=== PATIENT | female | born 1975 | race Caucasian/White ===

== ENCOUNTER 2022-11-16 12:41 | Inpatient (IN) | payer BC ==
--- NOTE | 2022-11-16 13:32 | ED ---
General Adult HPI - General Chief complaint: Psychiatric Symptoms Stated complaint: EPS evarmida petition Time Seen by Provider: 11/16/22 13:22 Source: patient Mode of arrival: ambulatory Limitations: no limitations - History of Present Illness Initial comments: Dictation was produced using [employer]OCK[employer] dictation software. please excuse any grammatical, word or spelling errors. Chief Complaint: 47-year-old female petition by for anand History of Present Illness: 47-year-old female past medical history bipolar disease. She has been admitted to psychiatric inpatient multiple occasions. Over the last week or so she has been having increasing anand, insomnia. states that she's been showing signs of her psychosis. Patient has had extensive psychiatric treatment for the last several years. Denies any suicidal homicidal ideation. states that patient is having delusions also. The ROS documented in this emergency department record has been reviewed and confirmed by me. Those systems with pertinent positive or negative responses have been documented in the HPI. All other systems are other negative and/or noncontributory. PHYSICAL EXAM: General Impression: Alert and oriented x3, not in acute distress HEENT: Normocephalic atraumatic, extra-ocular movements intact, pupils equal and reactive to light bilaterally, mucous membranes moist. Cardiovascular: Heart regular rate and rhythm Chest: Able to complete full sentences, no retractions, no tachypnea Abdomen: abdomen soft, non-tender, non-distended, no organomegaly Musculoskeletal: Pulses present and equal in all extremities, no peripheral edema Motor: no focal deficits noted Neurological: CN II-XII grossly intact, no focal motor or sensory deficits noted Skin: Intact with no visualized rashes Psych: Psychotic ED course: 47-year-old female here for psychiatric evaluation. Patient is a extensive psychiatric history. Patient acutely psychotic. Vital signs upon arrival are within acceptable limits. Physical examination is benign. Patient medically cleared for EPS evaluation. Nursing notes and chart review was performed Patient was agitated given chemical sedation. Patient evaluated by EPS and will admit patient to psych unit. - Related Data Home Medications Medication Instructions Recorded Confirmed No Known Home Medications 11/16/22 11/16/22 Allergies Allergy/AdvReac Type Severity Reaction Status Date / Time No Known Allergies Allergy Verified 11/16/22 14:35 Review of Systems ROS Statement: Those systems with pertinent positive or pertinent negative responses have been documented in the HPI. ROS Other: All systems not noted in ROS Statement are negative. Past Medical History Additional Past Medical History / Comment(s): Vitamin D. History of Any Multi-Drug Resistant Organisms: None Reported Past Surgical History: No Surgical Hx Reported Past Psychological History: Anxiety, Bipolar, Depression Smoking Status: Never smoker Past Alcohol Use History: Rare Past Drug Use History: Marijuana General Exam Limitations: no limitations Course Vital Signs 11/16/22 12:47 Temperature 97.6 F Pulse Rate 103 H Respiratory 20 Rate Blood Pressure 145/92 O2 Sat by Pulse 96 Oximetry Medical Decision Making - Lab Data Lab Results 11/16/22 11/16/22 11/16/22 Range/Units 13:08 13:08 17:27 Urine Color Colorless Urine Appearance Clear (Clear) Urine pH 5.0 (5.0-8.0) Ur Specific [place] 1.003 (1.001-1.035) Urine Protein Negative (Negative) Urine Glucose (UA) Negative (Negative) Urine Ketones 2+ H (Negative) Urine Blood Negative (Negative) Urine Nitrite Negative (Negative) Urine Bilirubin Negative (Negative) Urine Urobilinogen <2.0 (<2.0) mg/dL Ur Leukocyte Esterase Negative (Negative) Urine Opiates Screen Not Detected (NotDetected) Ur Oxycodone Screen Not Detected (NotDetected) Urine Methadone Screen Not Detected (NotDetected) Ur Propoxyphene Screen Not Detected (NotDetected) Ur Barbiturates Screen Not Detected (NotDetected) U Tricyclic Antidepress Not Detected (NotDetected) Ur Phencyclidine Scrn Not Detected (NotDetected) Ur Amphetamines Screen Not Detected (NotDetected) U Methamphetamines Scrn Not Detected (NotDetected) U Benzodiazepines Scrn Not Detected (NotDetected) Urine Cocaine Screen Not Detected (NotDetected) U Marijuana (THC) Screen Detected H (NotDetected) Coronavirus (PCR) Not Detected (Not Detectd) Disposition Clinical Impression: Psychosis Disposition: ADMITTED IP TO THIS HOSP Condition: Fair Referrals: Rodger Saul MD [Primary Care Provider] - 1-2 days Decision Time: 18:54
[2022-11-16 13:41] LABS: Appearance,Urine Clear (Clear); Bilirubin,Urine Negative (Negative); Blood,Urine Negative (Negative); Color,Urine Colorless; Glucose,Urine (UA) Negative (Negative); Ketones,Urine 2+ (Negative); Leukocyte Esterase,Urine Negative (Negative); Nitrite,Urine Negative (Negative); Protein,Urine Negative (Negative); Specific Gravity,Urine 1.003 (1.001-1.035); Urobilinogen,Urine <2.0 mg/dL (<2.0)
[2022-11-16 13:58] LABS: Cocaine Screen,Urine Not Detected (NotDetected); Opiate Screen,Urine Not Detected (NotDetected); Phencyclidine Screen,Urine Not Detected (NotDetected); Urn Cannabinoid Scrn Detected (NotDetected)
[2022-11-16 13:59] LABS: Amphetamine Screen,Urine Not Detected (NotDetected); Barbiturate Screen,Urine Not Detected (NotDetected); Benzodiazepines Screen,Urine Not Detected (NotDetected); Methadone Screen, Urine Not Detected (NotDetected); Oxycodone Screen, Urine Not Detected (NotDetected); Tricyclic Antidepressant,Urine Not Detected (NotDetected)
[2022-11-16] MEDS ORDERED: HALOPERIDOL LACTATE 5 MG/ML 1 ML VIAL IM STA (14:21)
[2022-11-16] MEDS ORDERED: diphenhydrAMINE 50 MG/ML 1 ML VIAL IM STA (14:22)
[2022-11-16] MEDS ORDERED: LORazepam 2 MG/ML INJ IM STA (14:22)
[2022-11-16] MEDS ORDERED: ACETAMINOPHEN TAB 325 MG TAB PO PRN (19:29)
[2022-11-16] MEDS ORDERED: HALOPERIDOL LACTATE 5 MG/ML 1 ML VIAL IM PRN (19:29)
[2022-11-16] MEDS ORDERED: LORazepam 1 MG TAB PO PRN (19:29)
[2022-11-16] MEDS ORDERED: haloperidoL 5 MG TAB PO PRN (19:34)
[2022-11-16] MEDS ORDERED: LORazepam 2 MG/ML INJ IM PRN (19:35)
[2022-11-16] MEDS ORDERED: QUEtiapine 100 MG TAB PO SCH (21:00)
--- NOTE | 2022-11-17 02:36 | P.PN ---
Progress Note - Text Progress Note Date: 11/16/22 patient refused medical evaluation
[2022-11-17 08:12] LABS: Basophils % (A) 1 %; Eosinophils # (A) 0.3 k/uL (0-0.7); Eosinophils % (A) 6 %; HCT 42.1 % (34.0-46.0); HGB 14.1 gm/dL (11.4-16.0); Lymphocytes # (A) 1.2 k/uL (1.0-4.8); Lymphocytes % (A) 26 %; MCH 30.1 pg (25.0-35.0); MCHC 33.4 g/dL (31.0-37.0); Monocytes # (A) 0.2 k/uL (0-1.0); Monocytes % (A) 5 %; Neutrophils # (A) 2.7 k/uL (1.3-7.7); Neutrophils % (A) 60 %; Platelet Count 278 k/uL (150-450); RBC 4.68 m/uL (3.80-5.40); RDW 12.7 % (11.5-15.5); WBC 4.5 k/uL (3.8-10.6)
[2022-11-17 08:27] LABS: ALT 60 U/L (4-34); AST 56 U/L (14-36); African American GFR (CKD) >90 (>60 ml/min/1.73 sqM); Albumin 4.3 g/dL (3.5-5.0); Alkaline Phosphatase 72 U/L (38-126); Anion Gap 9 mmol/L; Blood Urea Nitrogen 11 mg/dL (7-17); Calcium 8.7 mg/dL (8.4-10.2); Carbon Dioxide 25 mmol/L (22-30); Chloride 100 mmol/L (98-107); Glucose 104 mg/dL (74-99); Non-African American GFR(CKD) 87 (>60 ml/min/1.73 sqM); Sodium 134 mmol/L (137-145); Total Bilirubin 0.8 mg/dL (0.2-1.3); Total Protein 7.2 g/dL (6.3-8.2)
[2022-11-17] MEDS ORDERED: NICOTINE 14MG/24HR PATCH TRANSDERM SCH (09:00)
--- NOTE | 2022-11-17 15:19 | P.MDCNMH ---
<Renato Painting - Last Filed: 11/17/22 14:58> History of Present Illness H&P Date: 11/17/22 History of Presenting Illness: Patient is a 47-year-old female with a past medical history of bipolar disorder and cannabinoid use disorder. She is currently admitted to inpatient mental health unit under psychiatric team. Patient under petition by her for a reported manic attack. Patient reports that she is and has 3 children at home. 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 Patient reports that she has been trying to deal with this at home but between dealing with everything at home and school and her bosses, she just broke and during a meeting at school she told her employers what she thought of them and what was frustrating her. She reports they are aware of her history of bipolar disorder and states that she was sent from her school to the hospital for evaluation. Patient currently calm and cooperative at this time. She denies having any suicidal or homicidal ideations and denies having any visual/auditory/tactile hallucinations. The patient states that she was hoping that she could just be sent home today. Patient reports that she is feeling better and just needs to be on some medicat ions. Patient reports cannabis use, denies nicotine use and denies any alcohol use. Patient denies any drug/substance use or abuse. She denies having any headaches, lightheadedness, dizziness, chest pain, palpitations, shortness of breath, or experiencing any numbness/tingling/weakness in her extremities. Laboratory results reviewed. CBC unremarkable. CMP revealing mild hyponatremia and slightly elevated liver function with AST of 56 and ALT of 60 (no previous labs available for comparison). Urinalysis negative for infection. Urine drug screen positive for marijuana. Covid PCR negative. Review of systems: Pertinent positives and negatives as discussed in HPI, a complete review of sy stems was performed and all other systems are negative. Physical exam: Vital signs reviewed and stable. General: Nontoxic, no distress and appears stated age. Derm: Skin warm and dry, normal coloration for ethnicity. Head: Atraumatic, normocephalic and symmetric. Eyes: EOMs intact, no lid lag, and anicteric sclera Mouth: no lip lesions, mucus membranes moist Cardiovascular: regular rate and rhythm with normal S1S2, no murmur Lungs: Respirations even, regular, and unlabored on room air. Lungs CTA bilaterally, no rhonchi, no rales, no wheezing, and no accessory muscle usage. Abdominal: soft, nontender to palpation, no guarding, no appreciable organomegaly Ext: ROM intact. No gross muscle atrophy, no edema, no contractures Neuro: Speech clear with normal tone and rate, face symmetrical and CN II-XII grossly intact with no noted focal neuro deficits. GCS 15. Psych: Alert and oriented to person, place, time, and situation. Appropriate and pleasant affect. Patient appears slightly anxious at times regarding wanting to go home but cooperative throughout assessment. Assessment and Plan of Care: Elevated liver enzymes -No previous labs available for comparison, liver enzymes only mildly elevated with AST of 56 and ALT of 60, no needs for further intervention at this time. -Possibly secondary to alcohol use however patient denies. Patient asymptomatic denying any abdominal complaints. -Recommend outpatient follow-up after discharge with PCP for repeat labs and continued long-term monitoring/management if needed. Cannabinoid use disorder -Recommend cessation of use. Bipolar disorder with reports of manic episode -Management per primary admitting psychiatric team. Thank you for allowing us to participate in the care of this pleasant patient. Do not hesitate to contact us with questions. Someone can be reached from the [facility] hospitalist group all hours of the day at [phone] or via [employer]. Past Medical History Additional Past Medical History / Comment(s): Vitamin D. History of Any Multi-Drug Resistant Organisms: None Reported Past Surgical History: No Surgical Hx Reported Past Psychological History: Anxiety, Bipolar, Depression Smoking Status: Never smoker Past Alcohol Use History: Rare Past Drug Use History: Marijuana Medications and Allergies Home Medications Medication Instructions Recorded Confirmed Type No Known Home Medications 11/16/22 11/16/22 History Allergies Allergy/AdvReac Type Severity Reaction Status Date / Time No Known Allergies Allergy Verified 11/16/22 22:09 Physical Exam Vitals: Vital Signs Temp Pulse Resp BP Pulse Ox 11/17/22 12:30 97 F L 94 16 107/69 98 11/16/22 19:59 97.5 F L 75 18 115/78 100 Intake and Output 11/16/22 11/17/22 11/17/22 22:59 06:59 14:59 Other: Weight 82.3 kg Cranial Nerve Examination - Cranial Nerves Cranial Nerve II- Optic: Intact Cranial Nerve III- Oculomotor: Intact Cranial Nerve IV- Trochlear: Intact Cranial Nerve V- Trigeminal: Intact Cranial Nerve - Abducens: Intact Cranial Nerve VII- Facial: Intact Cranial Nerve VIII- Auditory: Intact Cranial Nerve IX- Glossopharyngeal: Intact Cranial Nerve X- Vagus: Intact Cranial Nerve XI- Accessory: Intact Cranial Nerve XII- Hypoglossal: Intact Results CBC & Chem 7: 11/17/22 07:49 11/17/22 07:52 Labs: Abnormal Lab Results - Last 24 Hours (Table) 11/17/22 Range/Units 07:52 Sodium 134 L (137-145) mmol/L Glucose 104 H (74-99) mg/dL AST 56 H (14-36) U/L ALT 60 H (4-34) U/L <Heaven Patel - Last Filed: 11/17/22 19:18> History of Present Illness Renato Painting NP rendered care for this patient independently, reviewed the findings and plan as documented in the note above. I did not physically speak with or examine the patient on this date. Physical Exam Osteopathic Statement: *. No significant issues noted on an osteopathic structural exam other than those noted in the History and Physical/Consult. Vitals: Vital Signs Temp Pulse Resp BP Pulse Ox 11/17/22 12:30 97 F L 94 16 107/69 98 11/16/22 19:59 97.5 F L 75 18 115/78 100 Results CBC & Chem 7: 11/17/22 07:49 11/17/22 07:52 Labs: Abnormal Lab Results - Last 24 Hours (Table) 11/17/22 Range/Units 07:52 Sodium 134 L (137-145) mmol/L Glucose 104 H (74-99) mg/dL AST 56 H (14-36) U/L ALT 60 H (4-34) U/L
[2022-11-17] MEDS: ARIPiprazole 5 MG TAB PO SCH (15:35)
--- NOTE | 2022-11-17 15:42 | P.HP ---
Psychiatric H&P - . H&P Date: 11/17/22 History & Physical: Allergies Allergy/AdvReac Type Severity Reaction Status Date / Time No Known Allergies Allergy Verified 11/16/22 22:09 Vital Signs Temp 97.5 F L 11/16/22 19:59 Pulse 75 11/16/22 19:59 Resp 18 11/16/22 19:59 BP 115/78 11/16/22 19:59 Pulse Ox 100 11/16/22 19:59 FiO2 Intake & Output 11/16/22 11/17/22 11/17/22 18:59 06:59 18:59 Weight 84.867 kg 82.3 kg Laboratory Last Values WBC 4.5 k/uL (3.8-10.6) 11/17/22 07:49 RBC 4.68 m/uL (3.80-5.40) 11/17/22 07:49 Hgb 14.1 gm/dL (11.4-16.0) 11/17/22 07:49 Hct 42.1 % (34.0-46.0) 11/17/22 07:49 MCV 90.0 fL (80.0-100.0) 11/17/22 07:49 MCH 30.1 pg (25.0-35.0) 11/17/22 07:49 MCHC 33.4 g/dL (31.0-37.0) 11/17/22 07:49 RDW 12.7 % (11.5-15.5) 11/17/22 07:49 Plt Count 278 k/uL (150-450) 11/17/22 07:49 MPV 7.0 11/17/22 07:49 Neutrophils % 60 % 11/17/22 07:49 Lymphocytes % 26 % 11/17/22 07:49 Monocytes % 5 % 11/17/22 07:49 Eosinophils % 6 % 11/17/22 07:49 Basophils % 1 % 11/17/22 07:49 Neutrophils # 2.7 k/uL (1.3-7.7) 11/17/22 07:49 Lymphocytes # 1.2 k/uL (1.0-4.8) 11/17/22 07:49 Monocytes # 0.2 k/uL (0-1.0) 11/17/22 07:49 Eosinophils # 0.3 k/uL (0-0.7) 11/17/22 07:49 Basophils # 0.0 k/uL (0-0.2) 11/17/22 07:49 Sodium 134 mmol/L (137-145) L 11/17/22 07:52 Potassium 4.0 mmol/L (3.5-5.1) 11/17/22 07:52 Chloride 100 mmol/L (98-107) 11/17/22 07:52 Carbon Dioxide 25 mmol/L (22-30) 11/17/22 07:52 Anion Gap 9 mmol/L 11/17/22 07:52 BUN 11 mg/dL (7-17) 11/17/22 07:52 Creatinine 0.81 mg/dL (0.52-1.04) 11/17/22 07:52 Est GFR (CKD-EPI)AfAm >90 (>60 ml/min/1.73 sqM) 11/17/22 07:52 Est GFR (CKD-EPI)NonAf 87 (>60 ml/min/1.73 sqM) 11/17/22 07:52 Glucose 104 mg/dL (74-99) H 11/17/22 07:52 Calcium 8.7 mg/dL (8.4-10.2) 11/17/22 07:52 Total Bilirubin 0.8 mg/dL (0.2-1.3) 11/17/22 07:52 AST 56 U/L (14-36) H 11/17/22 07:52 ALT 60 U/L (4-34) H 11/17/22 07:52 Alkaline Phosphatase 72 U/L (38-126) 11/17/22 07:52 Total Protein 7.2 g/dL (6.3-8.2) 11/17/22 07:52 Albumin 4.3 g/dL (3.5-5.0) 11/17/22 07:52 TSH 1.600 mIU/L (0.465-4.680) 11/17/22 07:52 Urine Color Colorless 11/16/22 13:08 Urine Appearance Clear (Clear) 11/16/22 13:08 Urine pH 5.0 (5.0-8.0) 11/16/22 13:08 Ur Specific [place] 1.003 (1.001-1.035) 11/16/22 13:08 Urine Protein Negative (Negative) 11/16/22 13:08 Urine Glucose (UA) Negative (Negative) 11/16/22 13:08 Urine Ketones 2+ (Negative) H 11/16/22 13:08 Urine Blood Negative (Negative) 11/16/22 13:08 Urine Nitrite Negative (Negative) 11/16/22 13:08 Urine Bilirubin Negative (Negative) 11/16/22 13:08 Urine Urobilinogen <2.0 mg/dL (<2.0) 11/16/22 13:08 Ur Leukocyte Esterase Negative (Negative) 11/16/22 13:08 Urine Opiates Screen Not Detected (NotDetected) 11/16/22 13:08 Ur Oxycodone Screen Not Detected (NotDetected) 11/16/22 13:08 Urine Methadone Screen Not Detected (NotDetected) 11/16/22 13:08 Ur Propoxyphene Screen Not Detected (NotDetected) 11/16/22 13:08 Ur Barbiturates Screen Not Detected (NotDetected) 11/16/22 13:08 U Tricyclic Antidepress Not Detected (NotDetected) 11/16/22 13:08 Ur Phencyclidine Scrn Not Detected (NotDetected) 11/16/22 13:08 Ur Amphetamines Screen Not Detected (NotDetected) 11/16/22 13:08 U Methamphetamines Scrn Not Detected (NotDetected) 11/16/22 13:08 U Benzodiazepines Scrn Not Detected (NotDetected) 11/16/22 13:08 Urine Cocaine Screen Not Detected (NotDetected) 11/16/22 13:08 U Marijuana (THC) Screen Detected (NotDetected) H 11/16/22 13:08 Coronavirus (PCR) Not Detected (Not Detectd) 11/16/22 17:27 11/17/22 14:49 IDENTIFYING DATA: Patient is a 47-year-old female, currently lives with her and 3 kids, they live in a house, she works as a teacher. HPI: Patient presented to the hospital yesterday and evaluated in the ER for an increase in her manic symptoms and insomnia. According to ER report there was "signs of psychosis" according to and also patient was delusional. Patient's UDS positive for marijuana. Patient was admitted involuntarily to the mental health unit. Patient was seen wandering the hallways and agreeable educational speech language clinician today. Patient was rambling at times during the interview, illogical as well. She was fairly argumentative about medications and states that she stopped taking her medications about 1-1/2 years ago. She claims that she gets manic episodes about once a year. She claims that "I just came off a manic episode". She started speaking about being "clairvoyant" and that she has special palm and can manipulate objects. She claims that she also gets "signs from God" and also people. She claims that she wants to go to [facility] to talk with a doctor that treats bipolar disorder without any medications. She claims that the main reason why she came in the hospital was for "poor sleep" for the past for 5 days. She claims that work has been a big trigger for her. She also claims that she took a edible gummy bear however did not know it has TCH in it. She states that her mood is "a bit better now" denying any paranoia at this time. States that her sleep is poor, appetite as been fair. She was endorsing fairly poor insight and judgment and was not interested in taking medications initially. Patient denies any suicidal or homicidal ideations intent or plan. At this time patient denies any auditory or visual hallucinations. Patient admits to using edible gummy bear of thc as noted above and denies any other rec drug use. PAST PSYCHIATRIC HISTORY: Patient states that she has a history of bipolar disorder for several years. She claims that she has been on several different medications in the past and states that she had a bad reaction to lithium, and has been off of bipolar medications for about a year and a half now. He claims that she has had 4 psychiatric admissions in the past and last admission was at [facility]. Patient denies any psychiatric outpatient follow-up. Patient denies any history of suicide attempts in the past. Additional Past Medical History / Comment(s): Vitamin D. History of Any Multi-Drug Resistant Organisms: None Reported Past Surgical History: No Surgical Hx Reported Past Psychological History: Anxiety, Bipolar, Depression Smoking Status: Never smoker Past Alcohol Use History: Rare Past Drug Use History: Marijuana ALLERGIES: as per EMR CHEMICAL DEPENDENCY HISTORY: as per HPI FAMILY PSYCHIATRIC/SUBSTANCE USE HISTORY: Bipolar disorder in her brother. SOCIAL HISTORY: Patient was born and raised in [facility]. She states that she completed high school undergraduate studies and also her masters. She works as a teacher currently. She claims that she lives with her and 3 kids in a house. She denies any legal history. MENTAL STATUS EXAM: General Appearance: Patient appears to be wearing glasses, hospital gown, stated age is alert, rambling at times, argumentative. Patient appears to have poor hygiene and grooming. Behavior: Patient is seated without any agitated behavior. argumentative. Speech: Patient's speech is fluent and nonpressured. rapid. Mood/Affect: Patient reports their mood is "better now", affect is congruent Suicidality/Homicidality: Patient denies having any homicidal ideation intent or plan. Denies any suicidal ideations intent or plan Perceptions: Patient denies any visual hallucinations and denies any auditory hallucinations Though content/process: Patient is rambling, illogical at times. Religiously preoccupied. Minimizing her need for treatment. Memory and concentration: AOX3, grossly intact for the purposes of this session. Can spell "WORLD" backwards Judgment and insight: poor STRENGTHS/WEAKNESSES: strength is that patient is resilient. Weakness is that patient has poor judgment and is impulsive INTELLECT: average IMPRESSIONS: Bipolar disorder, current episode anand Cannabis use disorder mild PLAN: -Patient is admitted under involuntary status to MHU for stabilization of psychiatric symptoms and safety. Patient has not signed adult voluntary form and medication consent and is placed in patient's chart. A second certification was completed and along with petition will be filed for court. -Medications : Will start patient on Abilify by mouth 5 mg daily for mood stabilization/psychosis, trazodone 50 mg daily at bedtime for mood/insomnia. -Ativan and Haldol PRN for agitation/aggression -Patient was counselled on substance abuse and desired to cut back on use -Patient was informed of the risks, benefits and side effects of the medication and patient verbally consented to taking the medications. Patient signed med consent form and was placed in chart. -Internal Medicine consult to perform medical evaluation and physical. -NRT - not needed as patient does not smoke -SW on board for discharge planning. Encourage patient to participate in groups to work on coping skills. Will await deferral and court date. 11/17/22 14:51 11/17/22 15:35
[2022-11-17] MEDS ORDERED: traZODone HCL 50 MG TAB PO SCH (21:00)
[2022-11-17] MEDS ORDERED: QUEtiapine 50 MG TAB PO SCH (21:00)
[2022-11-17] MEDS: MAG HYDROX/AL HYDROX/SIMETH 30 ML CUP PO PRN (23:52)
[2022-11-18] MEDS: ARIPiprazole 5 MG TAB PO SCH (09:14)
[2022-11-18] MEDS: MAG HYDROX/AL HYDROX/SIMETH 30 ML CUP PO PRN (11:34)
[2022-11-18] MEDS ORDERED: traZODone HCL 50 MG TAB PO SCH (14:53)
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
[2022-11-18] MEDS: MAGNESIUM HYDROXIDE 2,400 MG/10 ML CUP PO PRN (16:55)
[2022-11-18] MEDS: MIRTAZAPINE 15 MG TAB PO SCH (21:43)
[2022-11-19] MEDS: ARIPiprazole 5 MG TAB PO SCH (08:51)
[2022-11-19] MEDS: MAG HYDROX/AL HYDROX/SIMETH 30 ML CUP PO PRN (10:11)
[2022-11-19] MEDS: MIRTAZAPINE 15 MG TAB PO SCH (20:55)
--- NOTE | 2022-11-19 21:16 | P.PN ---
Subjective Progress Note Date: 11/19/22 Principal diagnosis: Progress note She was seen in person to review her progress. She was contented with Abilify alone and would not agree with TraZodone nor GABApentin. She compla ined of transient GI upset no flu syndorme. She was less litigious towards the petition and was explained her rigghts her move of approaching the patient rigths and advocate adviser. She most likely would be ready to be discharged. as she has outlieved the inpatient admission critera by Sunday-Sunday. Diag; Bipolar disorde x 10yrss stability limited by her senstiivity towards Rx and her unwillingness to collaborate with different tx teams. Plan; discuss discharge plan tomororow . Follow up at her own discretion at her Psychiatrist of choice eg referral to and for clarifying her eccentric palm marc to magical palm not marc to delusion of control She was highly critical of the legal framework of peition section and would not agree to go through flexible pt oriented recovery route. Objective - Vital Signs Vital signs: Vital Signs Temp 97.7 F 11/19/22 06:40 Pulse 75 11/19/22 06:40 Resp 16 11/19/22 06:40 BP 117/75 11/19/22 06:40 Pulse Ox 95 11/19/22 06:40 FiO2 - Labs CBC & Chem 7: 11/17/22 07:49 11/17/22 07:52
[2022-11-19] MEDS: MAGNESIUM HYDROXIDE 2,400 MG/10 ML CUP PO PRN (23:51)
[2022-11-20] MEDS: ARIPiprazole 5 MG TAB PO SCH (09:47)
[2022-11-20] MEDS ORDERED: LORazepam 1 MG TAB PO PRN (10:38)
--- NOTE | 2022-11-20 12:06 | P.PN ---
Progress Note - Text Progress Note Date: 11/20/22 Interval History: Patient was seen wandering the hallways and was directable and agreeable to sp yusefk with health underwriter in the office. Patient appears to be more cooperative today with health underwriter. She continues to ramble at times during conversation however is more goal oriented and logical. She claims that she has been taking the medications. She asked several times about the treatment plan and also discharge. She claims that the trazodone caused her to have several different issues and felt "groggy" the next day he claims that she does not want to take that any longer. We spoke about the other option Remeron which she is agreeable to. She claims that she has been going to groups and speaking with her . She claims that her sleep is still been on and off and the racing thoughts have have improved. At this time patient denies any suicidal or homical ideations, intent or plan. Patient denies any auditory, visual hallucinations and denies any paranoia or delusions. Patient denies any side effects from the medications and has been compliant with meds. Mental Status Exam: General Appearance: Patient appears to be wearing glasses, hospital gown, stated age is alert, rambling at times, improving, less argumentative. Patient appears to have improving hygiene and grooming. Behavior: Patient is seated without any agitated behavior. less argumentative. Speech: Patient's speech is fluent and nonpressured. Mood/Affect: Patient reports their mood is "a bit better", affect is congruent Suicidality/Homicidality: Patient denies having any homicidal ideation intent or plan. Denies any suicidal ideations intent or plan Perceptions: Patient denies any visual hallucinations and denies any auditory hallucinations Though content/process: Patient is logical. Not Religiously preoccupied. Memory and concentration: AOX3, grossly intact for the purposes of this session Judgment and insight: poor IMPRESSIONS: Bipolar disorder, current episode anand Cannabis use disorder mild Plan: -Patient continues to meet criteria for inpatient psychiatric admission for symptom stabilization and safety. Patient has not signed adult voluntary form and was placed in patient's chart. -Medications: Abilify by mouth 5 mg daily for mood stabilization/psychosis, trazodone 50 mg daily at bedtime for mood/insomnia. -When necessary Ativan and Haldol for agitation/aggression. -NRT -not needed as patient does not smoke -SW on board for discharge planning. Encouraged the patient to participate in milieu. Currently awaiting deferral with corporate attorney and court date.
[2022-11-20] MEDS: MIRTAZAPINE 15 MG TAB PO SCH (20:36)
[2022-11-21] MEDS: ARIPiprazole 15 MG TAB PO SCH (09:15)
[2022-11-21] MEDS: MAG HYDROX/AL HYDROX/SIMETH 30 ML CUP PO PRN (09:17)
--- NOTE | 2022-11-21 11:41 | P.PN ---
Progress Note - Text Progress Note Date: 11/21/22 Interval History: Patient was seen wandering the hallways and was directable and agreeable to sp eak with promotion writer in the office. Patient appears to be more cooperative today and directable during conversation with promotion writer. She claims that she feels medications have been helping her. She claims that she is not sure if the Abilify is making her feel tired or she was just tired from the previous night and not sleeping well. She claims her sleep was a bit better with the Remeron however wants to give it another night at this dose. We spoke about other alternatives to sleeping medication which wants to remain on Remeron. She denies having had any other side effects from the medications. She claims that she is going to groups. She was fairly focused on discharge. She claims that she has not spoken with her mobile security architect and further deferral. Things have a fair appetite at this time. At this time patient denies any suicidal or homical ideations, intent or plan. Patient denies any auditory, visual hallucinations and denies any paranoia or delusions. Patient denies any side effects from the medications and has been compliant with meds. Mental Status Exam: General Appearance: Patient appears to be wearing glasses, hospital gown, stated age is alert, more directable. Patient appears to have improving hygiene and grooming. Behavior: Patient is seated without any agitated behavior. Speech: Patient's speech is fluent and nonpressured. Mood/Affect: Patient reports their mood is "a bit better", affect is congruent and brighter Suicidality/Homicidality: Patient denies having any homicidal ideation intent or plan. Denies any suicidal ideations intent or plan Perceptions: Patient denies any visual hallucinations and denies any auditory hallucinations Though content/process: Patient is logical. Not Religiously preoccupied. Memory and concentration: AOX3, grossly intact for the purposes of this session Judgment and insight: Improving mildly IMPRESSIONS: Bipolar disorder, current episode anand Cannabis use disorder mild Plan: -Patient continues to meet criteria for inpatient psychiatric admission for symptom stabilization and safety. Patient has not signed adult voluntary form and was placed in patient's chart. -Medications: continue Abilify by mouth 7.5 mg daily for mood stabilization/psychosis, continue remeron 15 mg daily at bedtime for mood/insomnia -When necessary Ativan and Haldol for agitation/aggression. -NRT -not needed as patient does not smoke -SW on board for discharge planning. Encouraged the patient to participate in milieu. Currently awaiting deferral with mobile security architect and court date. likely discharge tomorrow if patient is doing well.
[2022-11-21] MEDS: MIRTAZAPINE 15 MG TAB PO SCH (20:36)
[2022-11-22 07:07] VITALS: BP 117/57; PULSE 92; RESP 16; TEMP 97.3
[2022-11-22] MEDS: ARIPiprazole 15 MG TAB PO SCH (08:46)
--- NOTE | 2022-11-22 09:58 | P.DS ---
Providers Date of admission: 11/16/22 19:23 Expected date of discharge: 11/22/22 Attending physician: Fredy Ochoa MD Consults: 11/16/22 19:29 Consult Physician Routine Consulting Provider: Sandip Physician Consult Reason/Comments: H&P Do you want consulting provider notified?: Yes Primary care physician: Rodger Graves - Discharge Diagnosis(es) (1) Bipolar disorder, manic Current Visit: Yes Status: Acute Priority: High (2) Cannabis use disorder, mild, abuse Current Visit: Yes Status: Acute Priority: Medium Hospital Course: Admission HPI: Admission note was completed by play writer "Patient is a 47-year-old female, currently lives with her and 3 kids, they live in a house, she works as a teacher. Patient presented to the hospital yesterday and evaluated in the ER for an increase in her manic symptoms and insomnia. According to ER report there was "signs of psychosis" according to and also patient was delusional. Patient's UDS positive for marijuana. Patient was admitted involuntarily to the mental health unit. Patient was seen wandering the hallways and agreeable speech language pathologist assistant today. Patient was rambling at times during the interview, illogical as well. She was fairly argumentative about medications and states that she stopped taking her medications about 1-1/2 years ago. She claims that she gets manic episodes about once a year. She claims that "I just came off a manic episode". She started speaking about being "clairvoyant" and that she has special palm and can manipulate objects. She claims that she also gets "signs from God" and also people. She claims that she wants to go to [facility] to talk with a doctor that treats bipolar disorder without any medications. She claims that the main reason why she came in the hospital was for "poor sleep" for the past for 5 days. She claims that work has been a big trigger for her. She also claims that she took a edible gummy bear however did not know it has TCH in it. She states that her mood is "a bit better now" denying any paranoia at this time. States that her sleep is poor, appetite as been fair. She was endorsing fairly poor insight and judgment and was not interested in taking medications initially. Patient denies any suicidal or homicidal ideations intent or plan. At this time patient denies any auditory or visual hallucinations. Patient admits to using edible gummy bear of thc as noted above and denies any other rec drug use." Hospital course: Upon admission to the unit patient was admitted involuntarily on a petition and certificate and a second certificate was completed and faxed with the courts. Patient ended up signing a deferral with the state's attorney and agreeing to treatment. Patient got along well with other patients on the unit and followed unit protocol. Patient was compliant with the medications and denied any side effects throughout hospital course. Patient was started on Abilify and increased to a dose of 7.5 mg daily for mood stabilization/psychosis, Remeron 15 mg daily at bedtime for mood/insomnia. Patient spoke of her stressors and engaged in therapy both group and individual. Patient was also seen by medical team for history and physical exam. Throughout the course of the hospitalization patient gradually improved with regards to mood, anxiety, bizarre thoughts, sleep and returned back to their baseline level of functioning. On the day of discharge patient denied any suicidal or homicidal ideations intent or plan denied any auditory or visual hallucinations. Patient endorsed wanting to live for her kids and her future. The patient denied any access to guns or weapons. Patient denied any paranoia and did not endorse any delusions. Patient does have a significant history of substance abuse and was counseled on abstaining from all substances including alcohol and marijuana. Patient elected to do outpatient substance use treatment program through her outpatient provider. Patient was also counseled on the medications and need for regular compliance and was encouraged to follow-up with their outpatient appointment for mental health and also for primary care. Prior to discharge a family meeting will be arranged by perinatal social worker to answer any questions and ensure safety upon discharge. Mental status exam: General Appearance: Patient appears to be wearing glasses,stated age is alert, pleasant, and cooperative. Patient is in no acute distress and has improved hygiene and grooming Behavior: Patient is calmly seated without any agitated behavior. directable Speech: Patient's speech is fluent and nonpressured. Mood/Affect: Patient reports their mood is "much better", affect is congruent Suicidality/Homicidality: Patient denies having any suicidal or homicidal ideation intent or plan. Perceptions: Patient denies any auditory or visual hallucinations. Though content/process: There is no evidence of any delusional thought content and thought process is linear and goal-directed. more future oriented Memory and concentration: AOX3, grossly intact for the purposes of this session. Can spell "WORLD" backwards correctly. Judgment and insight: improved with guarded prognosis Impression: Bipolar disorder, manic Cannabis use disorder mild Plan: -Continue with discharge today as patient has improved and stabilized psychiatrically and is not currently an imminent threat to herself and/or others. -Continue medications: Abilify by mouth 7.5 mg daily for mood stabilization/psychosis, Remeron 15 mg daily at bedtime for mood/insomnia. -Patient was counseled on the need for medication compliance and appropriate follow-up at mental health and also primary care for medical issues. Patient verbalized understanding and agreed. -Social work to arrange for and conduct family meeting to ensure safety upon discharge and answer any questions/concerns. Social work also to arrange for patients follow up appointments for psychiatric care along with follow up with primary care provider. -Patient counseled on abstaining from recreational drugs and marijuana and alcohol. Was informed/educated on the adverse effects on their physical and mental health. Patient verbally agreed and understood. Patient was offered substance abuse treatment however declined at this time. -Patient was instructed to return to the hospital or seek immediate medical care if their psychiatric or medical symptoms do worsen or reoccur. Allergies Allergy/AdvReac Type Severity Reaction Status Date / Time No Known Allergies Allergy Verified 11/16/22 22:09 Laboratory Results WBC 4.5 k/uL (3.8-10.6) 11/17/22 07:49 RBC 4.68 m/uL (3.80-5.40) 11/17/22 07:49 Hgb 14.1 gm/dL (11.4-16.0) 11/17/22 07:49 Hct 42.1 % (34.0-46.0) 11/17/22 07:49 MCV 90.0 fL (80.0-100.0) 11/17/22 07:49 MCH 30.1 pg (25.0-35.0) 11/17/22 07:49 MCHC 33.4 g/dL (31.0-37.0) 11/17/22 07:49 RDW 12.7 % (11.5-15.5) 11/17/22 07:49 Plt Count 278 k/uL (150-450) 11/17/22 07:49 MPV 7.0 11/17/22 07:49 Neutrophils % 60 % 11/17/22 07:49 Lymphocytes % 26 % 11/17/22 07:49 Monocytes % 5 % 11/17/22 07:49 Eosinophils % 6 % 11/17/22 07:49 Basophils % 1 % 11/17/22 07:49 Neutrophils # 2.7 k/uL (1.3-7.7) 11/17/22 07:49 Lymphocytes # 1.2 k/uL (1.0-4.8) 11/17/22 07:49 Monocytes # 0.2 k/uL (0-1.0) 11/17/22 07:49 Eosinophils # 0.3 k/uL (0-0.7) 11/17/22 07:49 Basophils # 0.0 k/uL (0-0.2) 11/17/22 07:49 Sodium 134 mmol/L (137-145) L 11/17/22 07:52 Potassium 4.0 mmol/L (3.5-5.1) 11/17/22 07:52 Chloride 100 mmol/L (98-107) 11/17/22 07:52 Carbon Dioxide 25 mmol/L (22-30) 11/17/22 07:52 Anion Gap 9 mmol/L 11/17/22 07:52 BUN 11 mg/dL (7-17) 11/17/22 07:52 Creatinine 0.81 mg/dL (0.52-1.04) 11/17/22 07:52 Est GFR (CKD-EPI)AfAm >90 (>60 ml/min/1.73 sqM) 11/17/22 07:52 Est GFR (CKD-EPI)NonAf 87 (>60 ml/min/1.73 sqM) 11/17/22 07:52 Glucose 104 mg/dL (74-99) H 11/17/22 07:52 Calcium 8.7 mg/dL (8.4-10.2) 11/17/22 07:52 Total Bilirubin 0.8 mg/dL (0.2-1.3) 11/17/22 07:52 AST 56 U/L (14-36) H 11/17/22 07:52 ALT 60 U/L (4-34) H 11/17/22 07:52 Alkaline Phosphatase 72 U/L (38-126) 11/17/22 07:52 Total Protein 7.2 g/dL (6.3-8.2) 11/17/22 07:52 Albumin 4.3 g/dL (3.5-5.0) 11/17/22 07:52 TSH 1.600 mIU/L (0.465-4.680) 11/17/22 07:52 Urine Color Colorless 11/16/22 13:08 Urine Appearance Clear (Clear) 11/16/22 13:08 Urine pH 5.0 (5.0-8.0) 11/16/22 13:08 Ur Specific [place] 1.003 (1.001-1.035) 11/16/22 13:08 Urine Protein Negative (Negative) 11/16/22 13:08 Urine Glucose (UA) Negative (Negative) 11/16/22 13:08 Urine Ketones 2+ (Negative) H 11/16/22 13:08 Urine Blood Negative (Negative) 11/16/22 13:08 Urine Nitrite Negative (Negative) 11/16/22 13:08 Urine Bilirubin Negative (Negative) 11/16/22 13:08 Urine Urobilinogen <2.0 mg/dL (<2.0) 11/16/22 13:08 Ur Leukocyte Esterase Negative (Negative) 11/16/22 13:08 Urine Opiates Screen Not Detected (NotDetected) 11/16/22 13:08 Ur Oxycodone Screen Not Detected (NotDetected) 11/16/22 13:08 Urine Methadone Screen Not Detected (NotDetected) 11/16/22 13:08 Ur Propoxyphene Screen Not Detected (NotDetected) 11/16/22 13:08 Ur Barbiturates Screen Not Detected (NotDetected) 11/16/22 13:08 U Tricyclic Antidepress Not Detected (NotDetected) 11/16/22 13:08 Ur Phencyclidine Scrn Not Detected (NotDetected) 11/16/22 13:08 Ur Amphetamines Screen Not Detected (NotDetected) 11/16/22 13:08 U Methamphetamines Scrn Not Detected (NotDetected) 11/16/22 13:08 U Benzodiazepines Scrn Not Detected (NotDetected) 11/16/22 13:08 Urine Cocaine Screen Not Detected (NotDetected) 11/16/22 13:08 U Marijuana (THC) Screen Detected (NotDetected) H 11/16/22 13:08 Coronavirus (PCR) Not Detected (Not Detectd) 11/16/22 17:27 Vital Signs Temp 97.3 F L 11/22/22 06:45 Pulse 92 11/22/22 06:45 Resp 16 11/22/22 06:45 BP 117/57 11/22/22 06:45 Pulse Ox 96 11/22/22 06:45 FiO2 Patient Condition at Discharge: Stable Plan - Discharge Summary Discharge Rx Participant: Yes New Discharge Prescriptions: New ARIPiprazole [Abilify] 7.5 mg PO DAILY 30 Days #15 tab Mirtazapine [Remeron] 15 mg PO HS 30 Days #30 tab Discharge Medication List ARIPiprazole [Abilify] 7.5 mg PO DAILY 30 Days #15 tab 11/22/22 [Rx] Mirtazapine [Remeron] 15 mg PO HS 30 Days #30 tab 11/22/22 [Rx] Follow up Appointment(s)/Referral(s): [facility] [Other] - 12/07/22 11:00 am (telehealth appointment with Consuelo ) Rodger Saul MD [Primary Care Provider] - 1-2 days Patient Instructions/Handouts: Bipolar Disorder (DC) Activity/Diet/Wound Care/Special Instructions: Avoid the use of street drugs and alcohol. Take all prescriptions as prescribed. When you are in need of refills on your medications, please contact your medical provider and/or outpatient psychiatrist to have this done. Please go to scheduled outpatient appointment for aftercare treatment. If symptoms return or become worse, call the crisis line at and/or go to the nearest emergency room for evaluation Discharge Disposition: HOME SELF-CARE
== END 2022-11-22 12:02 | disposition home or self-care (01) | DRG 885 ==
LOC: EC 12:41 → 3MHU 19:23
PROVIDERS: ADMIT Psychiatry & Neurology Psychiatry; ATTEND Psychiatry & Neurology Psychiatry
DX: F31.2 Bipolar disorder, current episode manic severe with psychotic features (principal); F12.10 Cannabis abuse, uncomplicated; Z20.822 Contact with and (suspected) exposure to COVID-19; Z28.310 Unvaccinated for COVID-19; F41.9 Anxiety disorder, unspecified; G47.00 Insomnia, unspecified; Z81.8 Family history of other mental and behavioral disorders
CPT/HCPCS: 80053; 80306; 81003; 82075; 84443; 85025; 87635; 96372; 99285